=== PATIENT | female | born 1950 | race Caucasian/White ===

== ENCOUNTER 2017-12-20 07:23 | Inpatient (IN) | payer MEDICARE ==
[~2017-12-20] VITALS: Ht 162.6 cm; Wt 84.0 kg
[2017-12-20] VITALS (17 sets, daily range): BP systolic 100–132; BP diastolic 51–83
[2017-12-20 07:59] LABS: BASOPHILS % (AUTO) 0.3 % (0-1); EOSINOPHILS % (AUTO) 0 % (0-6); HEMATOCRIT 40.8 % (35.0-45.0); HEMOGLOBIN 14.1 g/dl (12.0-16.0); LYMPHOCYTES # (AUTO) 0.7 X10'3 (1.1-4.8); LYMPHOCYTES % (AUTO) 7.3 % (21-51); MEAN CORPUSCULAR HEMOGLOBIN 29.6 PG (27.0-31.0); MEAN CORPUSCULAR HGB CONC 34.5 % (33.0-36.5); MEAN CORPUSCULAR VOLUME 85.9 FL (78-98); MEAN PLATELET VOLUME 9.6 FL (7.4-10.4); MONOCYTES # (AUTO) 0.4 X10'3 (0-0.9); MONOCYTES % (AUTO) 4.8 % (2-12); NEUTROPHILS % (AUTO) 87.6 % (42-75); PLATELET COUNT 242 X10'3 (140-440); RED BLOOD COUNT 4.75 X10'6 (4.20-5.60); RED CELL DISTRIBUTION WIDTH 13.2 % (11.5-14.5); WHITE BLOOD COUNT 9.1 X10'3 (4.5-11.0)
[2017-12-20] MEDS ORDERED: normal saline 1000ML IV soln IVB ONE (08:00)
[2017-12-20] MEDS ORDERED: MORPHINE 2MG in 2ml NS syringe IV PRN (08:10)
[2017-12-20] MEDS ORDERED: morphine 4 MG/ML inj SYRINge IV PRN (08:10)
[2017-12-20] MEDS ORDERED: proCHLORperazine 10 MG/2 ml inj IV ONE (08:10)
[2017-12-20 08:14] LABS: ALANINE AMINOTRANSFERASE 24 U/L (12-78); ALBUMIN/GLOBULIN RATIO 0.7 (1.1-1.5); ALKALINE PHOSPHATASE 107 IU/L (46-116); ANION GAP 10 (8-16); ASPARTATE AMINO TRANSFERASE 21 U/L (10-37); BILIRUBIN,TOTAL 0.7 MG/DL (0.1-1.0); BLOOD UREA NITROGEN 14 MG/DL (7-18); BUN/CREATININE RATIO 16.9 (6.6-38.0); CHLORIDE 99 MMOL/L (99-107); CREATININE 0.83 MG/DL (0.40-0.90); GLUCOSE 354 MG/DL (70-104); LIPASE < 50 U/L (73-393); MAGNESIUM 1.4 MG/DL (1.5-2.4); POTASSIUM 4.2 MMOL/L (3.5-5.1); SODIUM 134 MMOL/L (135-145); TOTAL CARBON DIOXIDE 25.4 MMOL/L (24-32); TOTAL PROTEIN 7.6 G/DL (6.4-8.2); eGFR 69 ML/MIN
[2017-12-20] MEDS ORDERED: NO HOME MEDS (09:32)
[2017-12-20] MEDS ORDERED: aspirin 81mg tab.chew PO ONE (09:50)
[2017-12-20] MEDS ORDERED: heparin 10,000 units/1 ML INJ IV ONE (09:50)
[2017-12-20] MEDS ORDERED: potassium Cl 20 mEq SR tablet PO PRN ×2 (10:45)
[2017-12-20] MEDS ORDERED: ondansetron/PF 4mg/2ml inj IV PRN (10:45)
[2017-12-20] MEDS ORDERED: magnesium hydroxide 30ml (MOM) UD suspension PO PRN (10:45)
[2017-12-20] MEDS ORDERED: magnesium Cl slow-release 64mg tablet PO PRN (10:45)
[2017-12-20] MEDS ORDERED: mag hydrox/Alum hydrox/simeth 30ml oral suspension PO PRN (10:45)
[2017-12-20] MEDS ORDERED: acetaminophen 325mg tablet PO PRN (10:45)
[2017-12-20] MEDS ORDERED: potassium Cl 40MEQ/NS 500ml 500 ML IV PRN ×2 (10:45)
[2017-12-20] MEDS ORDERED: magnesium 2GM in 50ml NS 50 ML IV PRN (10:45)
[2017-12-20] MEDS ORDERED: bisacodyl 10mg suppository rectal RC PRN (10:45)
[2017-12-20] MEDS ORDERED: magnesium 4gm in 100ml NS 100 ML IV PRN (10:45)
[2017-12-20] MEDS ORDERED: metoprolol tartrate 25mg tablet PO SCH ×2 (10:50→20:00)
[2017-12-20] MEDS ORDERED: nitroGLYCERIN 0.4mg SUBLingual tab SL PRN (10:50)
[2017-12-20] MEDS ORDERED: heparin 10,000 units/1 ML INJ IV PRN ×2 (10:50→15:00)
[2017-12-20] MEDS ORDERED: MESSAGE TO PHARMACY PO ONE ×2 (11:00→21:30)
[2017-12-20] MEDS ORDERED: glucagon, human recombinant 1mg kit SUBCUT PRN (11:00)
[2017-12-20] MEDS ORDERED: dextrose 50%-water 50ml dispensing syringe IV PRN ×2 (11:00)
[2017-12-20] MEDS ORDERED: dextrose ORAL solution 15 GM/59 ML bottle PO PRN ×2 (11:00)
[2017-12-20 11:13] LABS: INR 1.1 INR; PARTIAL THROMBOPLASTIN TIME 24 SECONDS (22-32); PROTHROMBIN TIME 11.4 SECONDS (9.0-12.0)
[2017-12-20 11:19] LABS: CLARITY,URINE TURBID (Clear); COLOR,URINE YELLOW (Yellow); GLUCOSE, URINE >=1000 mg/dl (Neg); KETONES,URINE >=80 mg/dl (Neg); LEUKOCYTE ESTERASE ,URINE NEGATIVE (Neg); NITRITES, URINE NEGATIVE (Neg); OCCULT BLOOD,URINE NEGATIVE (Neg); PH,URINE 5.5 (4.8-8.0); PROTEIN,URINE NEGATIVE (Neg); UA COLLECTION TYPE CLN CATCH MIDSTREAM
[2017-12-20] MEDS ORDERED: LIDOcaine 1%/PF (10mg/ml) 5ml vial ONE (11:43)
[2017-12-20 12:04] LABS: CHOLESTEROL 232 MG/DL (0-200); HDL CHOLESTEROL 58 MG/DL (35-60); LDL CHOLESTEROL 151 MG/DL (50-100); TRIGLYCERIDES 105 MG/DL (20-135)
[2017-12-20 12:07] LABS: BACTERIA,URINE 2+ /HPF (Neg); RBC,URINE NONE SEEN /HPF (0-2); SQUAMOUS EPITHELIAL CELL,UR MODERATE /LPF (FEW)
[2017-12-20 12:08] LABS: YEAST FEW /HPF (NEGATIVE)
[2017-12-20 13:01] LABS: BFSOURCE LEFT PLEURAL FLD; PLEURAL FLUID PH 7.491 (7.63-7.65)
[2017-12-20] MEDS: sodium chloride 0.45% 1,000 ML IV SCH (13:40)
[2017-12-20 13:41] LABS: GLUCOSE,BODY FLUID 368 MG/DL; LDH,BODY FLUID 82 U/L
[2017-12-20 13:49] LABS: TOTAL PROTEIN,BODY FLUID < 2.0 G/DL
[2017-12-20 14:24] LABS: BFAPPEAR CLOUDY
[2017-12-20] MEDS: furosemide 20 MG/2 ML vial IV SCH ×2 (14:24→19:44)
[2017-12-20 14:25] LABS: BFCOLOR YELLOW
[2017-12-20 14:26] LABS: BF MESOTHELIAL CELLS MODERATE; BF RBC COUNT 548 /CU MM; BF WBC COUNT 98 /CU MM (0-1000); BFVOLUME 60 ML; EOSINOPHILS,BODY FLUID 2 %; LYMPHOCYTES,BODY FLUID 54 %; MONOCYTES,BODY FLUID 12 %; NEUTROPHILS,BODY FLUID 32 %
[2017-12-20] MEDS: atorvastatin 20mg tablet PO SCH (14:34)
[2017-12-20] MEDS: CefTRIAXone/D5W-Rocephin 1gm 50 ML IV SCH (14:35)
[2017-12-20] MEDS: albuterol 2.5 MG/3 ML nebule NEB SCH ×3 (16:04→23:00)
[2017-12-20] MEDS ORDERED: LIDOcaine 1% 30ml preserv. free vial ONE (16:54)
[2017-12-20] MEDS ORDERED: iohexol 350MG/ML 100ml bottle IV ONE (16:54)
[2017-12-20] MEDS ORDERED: midazolam 2 mg/2 ml injection ONE (17:24)
[2017-12-20] MEDS ORDERED: iohexol 350 MG/ML 50ML vial IV ONE (17:36)
[2017-12-20] MEDS: docusate sod 100mg capsule PO SCH (19:44)
[2017-12-20] MEDS ORDERED: metoprolol tartrate 12.5mg (1/2 tablet) PO SCH (21:20)
[2017-12-20] MEDS ORDERED: insulin glargine (Lantus) pen - multi-dose SQ SCH (21:43)
[2017-12-20] MEDS ORDERED: albuterol 2.5 MG/3 ML nebule NEB PRN (23:40)
[2017-12-21] VITALS (10 sets, daily range): BP systolic 96–118; BP diastolic 59–74
[2017-12-21] MEDS: sodium chloride 0.45% 1,000 ML IV SCH ×2 (02:00→15:21)
[2017-12-21 03:01] LABS: BASOPHILS % (AUTO) 0.3 % (0-1); EOSINOPHILS # (AUTO) 0.1 X10'3 (0-0.9); HEMATOCRIT 36.1 % (35.0-45.0); HEMOGLOBIN 12.6 g/dl (12.0-16.0); LYMPHOCYTES # (AUTO) 0.7 X10'3 (1.1-4.8); LYMPHOCYTES % (AUTO) 10.8 % (21-51); MEAN CORPUSCULAR HEMOGLOBIN 29.8 PG (27.0-31.0); MEAN CORPUSCULAR HGB CONC 34.9 % (33.0-36.5); MEAN CORPUSCULAR VOLUME 85.3 FL (78-98); MEAN PLATELET VOLUME 9.3 FL (7.4-10.4); MONOCYTES # (AUTO) 0.5 X10'3 (0-0.9); MONOCYTES % (AUTO) 8.8 % (2-12); NEUTROPHILS # (AUTO) 4.8 X10'3 (1.8-7.7); NEUTROPHILS % (AUTO) 79.1 % (42-75); PLATELET COUNT 195 X10'3 (140-440); RED BLOOD COUNT 4.23 X10'6 (4.20-5.60); RED CELL DISTRIBUTION WIDTH 13.3 % (11.5-14.5); WHITE BLOOD COUNT 6.1 X10'3 (4.5-11.0)
[2017-12-21 03:15] LABS: ALANINE AMINOTRANSFERASE 21 U/L (12-78); ALBUMIN 2.4 G/DL (3.4-5.0); ALBUMIN/GLOBULIN RATIO 0.6 (1.1-1.5); ALKALINE PHOSPHATASE 90 IU/L (46-116); ANION GAP 8 (8-16); ASPARTATE AMINO TRANSFERASE 21 U/L (10-37); BILIRUBIN,TOTAL 0.5 MG/DL (0.1-1.0); BLOOD UREA NITROGEN 19 MG/DL (7-18); BUN/CREATININE RATIO 21.1 (6.6-38.0); CALCIUM 8.4 MG/DL (8.5-10.1); CHLORIDE 98 MMOL/L (99-107); MAGNESIUM 2.4 MG/DL (1.5-2.4); POTASSIUM 4.4 MMOL/L (3.5-5.1); SODIUM 132 MMOL/L (135-145); TOTAL CARBON DIOXIDE 26.1 MMOL/L (24-32); TOTAL PROTEIN 6.4 G/DL (6.4-8.2); eGFR 63 ML/MIN
[2017-12-21 03:17] LABS: GLUCOSE 469 MG/DL (70-104)
[2017-12-21] MEDS ORDERED: insulin Lispro (HumaLOG) vial - multi-dose SQ SCH (03:35)
[2017-12-21] MEDS: docusate sod 100mg capsule PO SCH ×2 (07:25→20:06)
[2017-12-21] MEDS: furosemide 20 MG/2 ML vial IV SCH ×2 (07:25→20:07)
[2017-12-21] MEDS: atorvastatin 20mg tablet PO SCH (07:25)
[2017-12-21] MEDS: CefTRIAXone/D5W-Rocephin 1gm 50 ML IV SCH (07:25)
[2017-12-21] MEDS: carVEDilol 3.125mg tablet PO SCH ×2 (07:33→20:06)
[2017-12-21] MEDS: K and/or MAG REPLACEMENT MC SCH (07:36)
[2017-12-21] MEDS ORDERED: aspirin 325mg tablet PO SCH ×2 (08:30)
[2017-12-21] MEDS: insulin Lispro (HumaLOG) vial - multi-dose SQ SCH ×2 (13:39→19:03)
[2017-12-21] MEDS: lactobacillus rhamnosus 10,000 MMU CELLS/CAPSULE PO SCH (20:06)
[2017-12-21] MEDS: lisinopril 2.5mg tablet PO SCH (20:07)
[2017-12-21] MEDS: insulin glargine (Lantus) pen - multi-dose SQ SCH (20:55)
[2017-12-22 03:00] VITALS: BP 92/63
[2017-12-22] MEDS: sodium chloride 0.45% 1,000 ML IV SCH (05:11)
[2017-12-22 05:42] LABS: ALANINE AMINOTRANSFERASE 23 U/L (12-78); ALBUMIN 2.3 G/DL (3.4-5.0); ALBUMIN/GLOBULIN RATIO 0.7 (1.1-1.5); ALKALINE PHOSPHATASE 88 IU/L (46-116); ANION GAP 6 (8-16); ASPARTATE AMINO TRANSFERASE 24 U/L (10-37); BILIRUBIN,TOTAL 0.3 MG/DL (0.1-1.0); BLOOD UREA NITROGEN 25 MG/DL (7-18); BUN/CREATININE RATIO 30.9 (6.6-38.0); CALCIUM 8.4 MG/DL (8.5-10.1); CHLORIDE 101 MMOL/L (99-107); CREATININE 0.81 MG/DL (0.40-0.90); GLUCOSE 173 MG/DL (70-104); MAGNESIUM 1.7 MG/DL (1.5-2.4); POTASSIUM 3.6 MMOL/L (3.5-5.1); SODIUM 137 MMOL/L (135-145); TOTAL CARBON DIOXIDE 30.4 MMOL/L (24-32); TOTAL PROTEIN 5.8 G/DL (6.4-8.2); eGFR 71 ML/MIN
[2017-12-22 05:44] LABS: BASOPHILS % (AUTO) 0.4 % (0-1); EOSINOPHILS # (AUTO) 0.1 X10'3 (0-0.9); EOSINOPHILS % (AUTO) 1.6 % (0-6); HEMATOCRIT 32.9 % (35.0-45.0); HEMOGLOBIN 11.2 g/dl (12.0-16.0); LYMPHOCYTES % (AUTO) 25.2 % (21-51); MEAN CORPUSCULAR HEMOGLOBIN 29.3 PG (27.0-31.0); MEAN CORPUSCULAR VOLUME 86.2 FL (78-98); MEAN PLATELET VOLUME 9.4 FL (7.4-10.4); MONOCYTES # (AUTO) 1.3 X10'3 (0-0.9); MONOCYTES % (AUTO) 16.5 % (2-12); NEUTROPHILS # (AUTO) 4.5 X10'3 (1.8-7.7); NEUTROPHILS % (AUTO) 56.3 % (42-75); PLATELET COUNT 176 X10'3 (140-440); RED BLOOD COUNT 3.82 X10'6 (4.20-5.60); RED CELL DISTRIBUTION WIDTH 13.2 % (11.5-14.5); WHITE BLOOD COUNT 7.9 X10'3 (4.5-11.0)
[2017-12-22 06:00] VITALS: BP 99/60
[2017-12-22] MEDS: atorvastatin 20mg tablet PO SCH (07:51)
[2017-12-22] MEDS: lactobacillus rhamnosus 10,000 MMU CELLS/CAPSULE PO SCH ×2 (07:51→20:29)
[2017-12-22] MEDS: docusate sod 100mg capsule PO SCH ×2 (07:51→20:29)
[2017-12-22] MEDS: CefTRIAXone/D5W-Rocephin 1gm 50 ML IV SCH (07:51)
[2017-12-22] MEDS: furosemide 20 MG/2 ML vial IV SCH (07:52)
[2017-12-22] MEDS: carVEDilol 3.125mg tablet PO SCH ×2 (07:53→20:29)
[2017-12-22] MEDS: enoxaparin 40mg/0.4ml syringe SUBCUT SCH (07:54)
[2017-12-22] MEDS: insulin Lispro (HumaLOG) vial - multi-dose SQ SCH ×3 (07:59→19:06)
[2017-12-22] MEDS: K and/or MAG REPLACEMENT MC SCH (08:00)
[2017-12-22] MEDS: aspirin 81mg tablet.DR PO SCH (09:51)
[2017-12-22 11:00] VITALS: BP 92/47
[2017-12-22 15:00] VITALS: BP 94/55
[2017-12-22] MEDS: levoFLOXACIN 500mg tablet PO SCH (16:09)
[2017-12-22 19:00] VITALS: BP 106/67
[2017-12-22] MEDS: lisinopril 2.5mg tablet PO SCH (20:29)
[2017-12-22] MEDS: insulin glargine (Lantus) pen - multi-dose SQ SCH (20:37)
[2017-12-22 23:00] VITALS: BP 94/53
[2017-12-23 03:00] VITALS: BP 99/64
[2017-12-23 06:00] VITALS: BP 95/54
[2017-12-23 06:30] LABS: ALANINE AMINOTRANSFERASE 22 U/L (12-78); ALBUMIN 2.2 G/DL (3.4-5.0); ALBUMIN/GLOBULIN RATIO 0.6 (1.1-1.5); ALKALINE PHOSPHATASE 86 IU/L (46-116); ANION GAP 8 (8-16); ASPARTATE AMINO TRANSFERASE 21 U/L (10-37); BILIRUBIN,TOTAL 0.4 MG/DL (0.1-1.0); BLOOD UREA NITROGEN 27 MG/DL (7-18); BUN/CREATININE RATIO 32.9 (6.6-38.0); CALCIUM 8.5 MG/DL (8.5-10.1); CHLORIDE 103 MMOL/L (99-107); CREATININE 0.82 MG/DL (0.40-0.90); GLUCOSE 133 MG/DL (70-104); MAGNESIUM 1.7 MG/DL (1.5-2.4); POTASSIUM 3.8 MMOL/L (3.5-5.1); SODIUM 139 MMOL/L (135-145); TOTAL CARBON DIOXIDE 28.3 MMOL/L (24-32); TOTAL PROTEIN 5.9 G/DL (6.4-8.2); eGFR 70 ML/MIN
[2017-12-23] MEDS: K and/or MAG REPLACEMENT MC SCH (06:54)
[2017-12-23] MEDS: carVEDilol 3.125mg tablet PO SCH (07:33)
[2017-12-23] MEDS: lactobacillus rhamnosus 10,000 MMU CELLS/CAPSULE PO SCH (07:33)
[2017-12-23] MEDS: docusate sod 100mg capsule PO SCH (07:33)
[2017-12-23] MEDS: atorvastatin 20mg tablet PO SCH (07:33)
[2017-12-23] MEDS: aspirin 81mg tablet.DR PO SCH (07:33)
[2017-12-23] MEDS: enoxaparin 40mg/0.4ml syringe SUBCUT SCH (07:35)
[2017-12-23] MEDS ORDERED: furosemide 20 MG/2 ML vial IV SCH (08:00)
[2017-12-23] MEDS: insulin Lispro (HumaLOG) vial - multi-dose SQ SCH ×2 (08:25→13:27)
[2017-12-23] MEDS: levoFLOXACIN 500mg tablet PO SCH (10:53)
[2017-12-23] MEDS ORDERED: COR3.125T PO (14:15)
[2017-12-23] MEDS ORDERED: LISI2.5T2 PO (14:15)
[2017-12-23] MEDS ORDERED: ATOR20TA66 PO (14:15)
[2017-12-23] MEDS ORDERED: LANTUS SQ (14:15)
[2017-12-23] MEDS ORDERED: LACT1CAP26 PO (14:15)
[2017-12-23] MEDS ORDERED: ASPI-1071 PO (14:15)
[2017-12-23] MEDS ORDERED: INSU100V11 SQ (14:21)
[2017-12-23 15:00] VITALS: BP 94/61
[2017-12-23] MEDS ORDERED: LEVO500T89 PO (15:01)
== END 2017-12-23 16:30 | disposition home or self-care (01) | DRG 280 ==
LOC: ER 07:24 → ED HOLD 10:45 → PCU 3S 14:55
PROVIDERS: ADMIT Internal Medicine; ATTEND Internal Medicine
PROC: 4A023N7 Measurement of Cardiac Sampling and Pressure, Left Heart, Percutaneous Approach (ICD-10-PCS; principal; 2017-12-20)
PROC: B2111ZZ Fluoroscopy of Multiple Coronary Arteries using Low Osmolar Contrast (ICD-10-PCS; 2017-12-20)
PROC: 0W9B3ZZ Drainage of Left Pleural Cavity, Percutaneous Approach (ICD-10-PCS; 2017-12-20)
PROC: B2151ZZ Fluoroscopy of Left Heart using Low Osmolar Contrast (ICD-10-PCS; 2017-12-20)
PROC: B3121ZZ Fluoroscopy of Left Subclavian Artery using Low Osmolar Contrast (ICD-10-PCS; 2017-12-20)
DX: I21.4 Non-ST elevation (NSTEMI) myocardial infarction (principal); I50.21 Acute systolic (congestive) heart failure; J90 Pleural effusion, not elsewhere classified; E11.9 Type 2 diabetes mellitus without complications; I51.81 Takotsubo syndrome; N39.0 Urinary tract infection, site not specified; I25.10 Atherosclerotic heart disease of native coronary artery without angina pectoris; B96.20 Unspecified Escherichia coli [E. coli] as the cause of diseases classified elsewhere; J45.909 Unspecified asthma, uncomplicated; N20.0 Calculus of kidney; Z66 Do not resuscitate; Z88.5 Allergy status to narcotic agent; Z79.82 Long term (current) use of aspirin; Z82.49 Family history of ischemic heart disease and other diseases of the circulatory system; Z83.3 Family history of diabetes mellitus
CPT/HCPCS: 32555; 36415; 71045; 74176; 80053; 80061; 81001; 82945; 82948; 83036; 83615; 83690; 83735; 83880; 83986; 84157; 84484; 85025; 85610; 85730; 87070; 87077; 87088; 87186; 88108; 89051; 93005; 93306; 93458; 94640; 94760; 96361; 96374; 96375; 97161; 97530; 99152; 99153; 99291; A6257; C1769; J0696; J0780; J1644; J1650; J1815; J1940; J2001; J2250; J2270; J3475; J3490; J7030; Q9967

== ENCOUNTER 2018-04-03 19:42 | Inpatient (IN) | payer MEDICARE ==
[~2018-04-03] VITALS: Ht 160 cm; Wt 82.8 kg
[~2018-04-03 19:42] MED LIST: ASPI-1071 PO; ATOR20TA66 PO; COR3.125T PO; INSU100V11 SQ; LACT1CAP26 PO; LANTUS SQ; LEVO500T89 PO; LISI2.5T2 PO; NO HOME MEDS
[2018-04-03 20:12] LABS: BASOPHILS % (AUTO) 0.2 % (0-1); EOSINOPHILS # (AUTO) 0.3 X10'3 (0-0.9); EOSINOPHILS % (AUTO) 2.8 % (0-6); HEMATOCRIT 39.4 % (35.0-45.0); HEMOGLOBIN 13.1 g/dl (12.0-16.0); LYMPHOCYTES # (AUTO) 2.4 X10'3 (1.1-4.8); LYMPHOCYTES % (AUTO) 27.2 % (21-51); MEAN CORPUSCULAR HEMOGLOBIN 28.3 PG (27.0-31.0); MEAN CORPUSCULAR HGB CONC 33.4 % (33.0-36.5); MEAN CORPUSCULAR VOLUME 84.7 FL (78-98); MEAN PLATELET VOLUME 10.3 FL (7.4-10.4); MONOCYTES # (AUTO) 0.5 X10'3 (0-0.9); MONOCYTES % (AUTO) 5.2 % (2-12); NEUTROPHILS # (AUTO) 5.8 X10'3 (1.8-7.7); NEUTROPHILS % (AUTO) 64.6 % (42-75); PLATELET COUNT 200 X10'3 (140-440); RED BLOOD COUNT 4.65 X10'6 (4.20-5.60); RED CELL DISTRIBUTION WIDTH 15.9 % (11.5-14.5)
[2018-04-03 20:22] LABS: INR 1.1 INR; PARTIAL THROMBOPLASTIN TIME 26 SECONDS (22-32); PROTHROMBIN TIME 11.7 SECONDS (9.0-12.0)
[2018-04-03 20:27] LABS: ALANINE AMINOTRANSFERASE 18 U/L (12-78); ALBUMIN 3.4 G/DL (3.4-5.0); ALBUMIN/GLOBULIN RATIO 0.8 (1.1-1.5); ALKALINE PHOSPHATASE 102 IU/L (46-116); ANION GAP 6 (8-16); ASPARTATE AMINO TRANSFERASE 15 U/L (10-37); BILIRUBIN,TOTAL 0.7 MG/DL (0.1-1.0); BLOOD UREA NITROGEN 19 MG/DL (7-18); BUN/CREATININE RATIO 23.2 (6.6-38.0); CALCIUM 9.6 MG/DL (8.5-10.1); CHLORIDE 104 MMOL/L (99-107); CREATININE 0.82 MG/DL (0.40-0.90); GLUCOSE 146 MG/DL (70-104); POTASSIUM 3.9 MMOL/L (3.5-5.1); SODIUM 141 MMOL/L (135-145); TOTAL PROTEIN 7.9 G/DL (6.4-8.2); eGFR 70 ML/MIN
[2018-04-03] MEDS ORDERED: nitroGLYCERIN 0.2mg/hour patch TD ONE (20:40)
[2018-04-03] MEDS ORDERED: furosemide 10 MG/1 ML 10ml inj IV ONE (20:40)
[2018-04-03] MEDS ORDERED: dextrose 50%-water 50ml dispensing syringe IV PRN ×2 (22:05)
[2018-04-03] MEDS ORDERED: ipratropium/albuterol 3ml nebule NEB PRN (22:05)
[2018-04-03] MEDS ORDERED: mag hydrox/Alum hydrox/simeth 30ml oral suspension PO PRN (22:05)
[2018-04-03] MEDS ORDERED: magnesium 4gm in 100ml NS 100 ML IV PRN (22:05)
[2018-04-03] MEDS ORDERED: potassium Cl 20 mEq SR tablet PO PRN ×2 (22:05)
[2018-04-03] MEDS ORDERED: docusate sod 100mg capsule PO PRN (22:05)
[2018-04-03] MEDS ORDERED: MESSAGE TO PHARMACY PO ONE (22:05)
[2018-04-03] MEDS ORDERED: ondansetron/PF 4mg/2ml inj IV PRN (22:05)
[2018-04-03] MEDS ORDERED: glucagon, human recombinant 1mg kit SUBCUT PRN (22:05)
[2018-04-03] MEDS ORDERED: insulin Lispro (HumaLOG) vial - multi-dose SQ SCH (22:05)
[2018-04-03] MEDS ORDERED: acetaminophen 325mg tablet PO PRN (22:05)
[2018-04-03] MEDS ORDERED: dextrose ORAL solution 15 GM/59 ML bottle PO PRN ×2 (22:05)
[2018-04-03] MEDS ORDERED: potassium Cl 40MEQ/NS 500ml 500 ML IV PRN ×2 (22:05)
[2018-04-03] MEDS ORDERED: furosemide 40mg/4ml inj IV SCH (22:20)
[2018-04-03 22:47] LABS: HEMOGLOBIN A1C 6.6 % (4.5-6.2)
[2018-04-03] MEDS: heparin, porcine 5000 units/ml vial SQ SCH (23:53)
[2018-04-04] VITALS: BP 147/86
[2018-04-04 02:41] LABS: BASOPHILS # (AUTO) 0.1 X10'3 (0-0.2); BASOPHILS % (AUTO) 1.3 % (0-1); EOSINOPHILS # (AUTO) 0.2 X10'3 (0-0.9); EOSINOPHILS % (AUTO) 2.2 % (0-6); HEMATOCRIT 33.8 % (35.0-45.0); HEMOGLOBIN 11.3 g/dl (12.0-16.0); LYMPHOCYTES % (AUTO) 22.3 % (21-51); MEAN CORPUSCULAR HEMOGLOBIN 28.3 PG (27.0-31.0); MEAN CORPUSCULAR HGB CONC 33.4 % (33.0-36.5); MEAN CORPUSCULAR VOLUME 84.6 FL (78-98); MEAN PLATELET VOLUME 10.4 FL (7.4-10.4); MONOCYTES # (AUTO) 0.6 X10'3 (0-0.9); MONOCYTES % (AUTO) 6.7 % (2-12); NEUTROPHILS # (AUTO) 5.9 X10'3 (1.8-7.7); NEUTROPHILS % (AUTO) 67.5 % (42-75); PLATELET COUNT 166 X10'3 (140-440); RED BLOOD COUNT 3.99 X10'6 (4.20-5.60); RED CELL DISTRIBUTION WIDTH 16.2 % (11.5-14.5); WHITE BLOOD COUNT 8.8 X10'3 (4.5-11.0)
[2018-04-04 03:06] LABS: ALANINE AMINOTRANSFERASE 21 U/L (12-78); ALBUMIN 2.8 G/DL (3.4-5.0); ALBUMIN/GLOBULIN RATIO 0.7 (1.1-1.5); ALKALINE PHOSPHATASE 74 IU/L (46-116); ANION GAP 5 (8-16); ASPARTATE AMINO TRANSFERASE 14 U/L (10-37); BILIRUBIN,TOTAL 0.6 MG/DL (0.1-1.0); BLOOD UREA NITROGEN 18 MG/DL (7-18); BUN/CREATININE RATIO 23.1 (6.6-38.0); CALCIUM 8.5 MG/DL (8.5-10.1); CHLORIDE 104 MMOL/L (99-107); CHOLESTEROL 128 MG/DL (0-200); CREATININE 0.78 MG/DL (0.40-0.90); GLUCOSE 196 MG/DL (70-104); HDL CHOLESTEROL 42 MG/DL (35-60); LDL CHOLESTEROL 78 MG/DL (50-100); MAGNESIUM 1.2 MG/DL (1.5-2.4); POTASSIUM 3.8 MMOL/L (3.5-5.1); SODIUM 140 MMOL/L (135-145); TOTAL CARBON DIOXIDE 31.4 MMOL/L (24-32); TOTAL PROTEIN 6.6 G/DL (6.4-8.2); TRIGLYCERIDES 49 MG/DL (20-135); eGFR 74 ML/MIN
[2018-04-04 07:02] VITALS: BP 121/70
[2018-04-04] MEDS: heparin, porcine 5000 units/ml vial SQ SCH ×2 (07:40→15:00)
[2018-04-04] MEDS: carVEDilol 3.125mg tablet PO SCH ×3 (07:42→19:37)
[2018-04-04] MEDS: furosemide 40mg/4ml inj IV SCH ×2 (07:46→19:38)
[2018-04-04] MEDS: K and/or MAG REPLACEMENT MC SCH (07:47)
[2018-04-04] MEDS ORDERED: lisinopril 10 MG tablet PO SCH (08:00)
[2018-04-04] MEDS: clopidogrel 75mg tablet PO SCH (10:10)
[2018-04-04] MEDS: aspirin 81mg tab.chew PO SCH (10:10)
[2018-04-04] MEDS ORDERED: lisinopril 2.5mg tablet PO SCH (10:26)
[2018-04-04] MEDS: magnesium 1gm/100ml D5W IVPB 100 ML IV PRN ×2 (10:41→12:34)
[2018-04-04] MEDS: atorvastatin 20mg tablet PO SCH (10:41)
[2018-04-04 11:18] VITALS: BP 122/74
[2018-04-04] MEDS ORDERED: LIDOcaine 0.5% (5mg/ml) 50ml vial ONE (14:20)
[2018-04-04 14:30] VITALS: BP 120/74
[2018-04-04 14:49] VITALS: BP 118/69
[2018-04-04 15:07] LABS: PLEURAL FLUID PH 7.537 (7.63-7.65)
[2018-04-04 15:08] LABS: BFSOURCE LEFT PLEURAL FLD
[2018-04-04 15:39] LABS: LDH,BODY FLUID 60 U/L; LIPASE,BODY FLUID 17 U/L
[2018-04-04 20:00] VITALS: BP 120/78
[2018-04-04] MEDS ORDERED: insulin glargine (Lantus) pen - multi-dose SQ SCH (21:00)
[2018-04-05] VITALS: BP 123/76
[2018-04-05] MEDS: heparin, porcine 5000 units/ml vial SQ SCH ×2 (00:02→08:52)
[2018-04-05 04:59] LABS: BASOPHILS % (AUTO) 0.6 % (0-1); EOSINOPHILS # (AUTO) 0.3 X10'3 (0-0.9); HEMATOCRIT 34.1 % (35.0-45.0); HEMOGLOBIN 11.6 g/dl (12.0-16.0); LYMPHOCYTES # (AUTO) 2.2 X10'3 (1.1-4.8); LYMPHOCYTES % (AUTO) 29.6 % (21-51); MEAN CORPUSCULAR HEMOGLOBIN 28.6 PG (27.0-31.0); MEAN CORPUSCULAR HGB CONC 33.9 % (33.0-36.5); MEAN CORPUSCULAR VOLUME 84.4 FL (78-98); MEAN PLATELET VOLUME 10.3 FL (7.4-10.4); MONOCYTES # (AUTO) 0.6 X10'3 (0-0.9); MONOCYTES % (AUTO) 8.5 % (2-12); NEUTROPHILS # (AUTO) 4.3 X10'3 (1.8-7.7); NEUTROPHILS % (AUTO) 57.3 % (42-75); PLATELET COUNT 173 X10'3 (140-440); RED BLOOD COUNT 4.04 X10'6 (4.20-5.60); RED CELL DISTRIBUTION WIDTH 15.6 % (11.5-14.5); WHITE BLOOD COUNT 7.5 X10'3 (4.5-11.0)
[2018-04-05 05:23] LABS: ALANINE AMINOTRANSFERASE 16 U/L (12-78); ALBUMIN 2.7 G/DL (3.4-5.0); ALBUMIN/GLOBULIN RATIO 0.7 (1.1-1.5); ALKALINE PHOSPHATASE 79 IU/L (46-116); ANION GAP 5 (8-16); ASPARTATE AMINO TRANSFERASE 17 U/L (10-37); BILIRUBIN,TOTAL 0.7 MG/DL (0.1-1.0); BLOOD UREA NITROGEN 16 MG/DL (7-18); BUN/CREATININE RATIO 18.8 (6.6-38.0); CALCIUM 8.7 MG/DL (8.5-10.1); CHLORIDE 102 MMOL/L (99-107); CREATININE 0.85 MG/DL (0.40-0.90); GLUCOSE 177 MG/DL (70-104); MAGNESIUM 1.5 MG/DL (1.5-2.4); POTASSIUM 3.2 MMOL/L (3.5-5.1); SODIUM 141 MMOL/L (135-145); TOTAL CARBON DIOXIDE 34.5 MMOL/L (24-32); TOTAL PROTEIN 6.4 G/DL (6.4-8.2); eGFR 67 ML/MIN
[2018-04-05 07:19] VITALS: BP 121/71
[2018-04-05] MEDS: K and/or MAG REPLACEMENT MC SCH (08:00)
[2018-04-05] MEDS ORDERED: lisinopril 2.5mg tablet PO SCH (08:00)
[2018-04-05] MEDS: atorvastatin 20mg tablet PO SCH (08:49)
[2018-04-05] MEDS: aspirin 81mg tab.chew PO SCH (08:49)
[2018-04-05] MEDS: clopidogrel 75mg tablet PO SCH (08:50)
[2018-04-05] MEDS: carVEDilol 3.125mg tablet PO SCH (08:51)
[2018-04-05] MEDS: furosemide 40mg/4ml inj IV SCH (08:51)
[2018-04-05] MEDS ORDERED: POTA20TA19 PO (10:56)
[2018-04-05] MEDS ORDERED: CLOP75TA15 PO (10:56)
[2018-04-05] MEDS ORDERED: FURO-149 PO (10:56)
[2018-04-05 12:30] VITALS: BP 106/58
== END 2018-04-05 12:05 | disposition home or self-care (01) | DRG 280 ==
LOC: ER 19:43 → ED HOLD 22:05 → EDBEDREQ 22:36 → SUR 3N 23:04
PROVIDERS: ADMIT Family Medicine; ATTEND Family Medicine
PROC: 0W9B3ZZ Drainage of Left Pleural Cavity, Percutaneous Approach (ICD-10-PCS; principal; 2018-04-04)
PROC: 0W993ZZ Drainage of Right Pleural Cavity, Percutaneous Approach (ICD-10-PCS; 2018-04-04)
DX: I11.0 Hypertensive heart disease with heart failure (principal); I21.A1 Myocardial infarction type 2; J96.00 Acute respiratory failure, unspecified whether with hypoxia or hypercapnia; J90 Pleural effusion, not elsewhere classified; I50.23 Acute on chronic systolic (congestive) heart failure; E78.5 Hyperlipidemia, unspecified; I25.10 Atherosclerotic heart disease of native coronary artery without angina pectoris; J45.909 Unspecified asthma, uncomplicated; E11.9 Type 2 diabetes mellitus without complications; I25.2 Old myocardial infarction; Z98.51 Tubal ligation status; Z88.5 Allergy status to narcotic agent; Z79.02 Long term (current) use of antithrombotics/antiplatelets; Z79.899 Other long term (current) drug therapy; Z79.4 Long term (current) use of insulin; Z79.82 Long term (current) use of aspirin; Z82.49 Family history of ischemic heart disease and other diseases of the circulatory system; Z83.3 Family history of diabetes mellitus
CPT/HCPCS: 32555; 36415; 71045; 80053; 80061; 82948; 83036; 83615; 83690; 83735; 83880; 83986; 84484; 85025; 85610; 85730; 87070; 87075; 93005; 94760; A4649; A6196; J1644; J1815; J1940; J2001; J3475

== ENCOUNTER 2025-05-06 00:27 | Emergency (ER) | payer MEDICARE ==
[~2025-05-06] VITALS: Ht 162.6 cm; Wt 76.7 kg
[~2025-05-06 00:27] MED LIST changes: +CLOP75TA15 PO; +FURO-149 PO; -LEVO500T89 PO; +LISI2.5T14 PO; -LISI2.5T2 PO; -NO HOME MEDS
[2025-05-06 01:43] LABS: MEAN PLATELET VOLUME 9.7 FL (7.4-10.4); RED CELL DISTRIBUTION WIDTH 14.1 % (11.5-14.5)
[2025-05-06] MEDS: ondansetron/PF 4mg/2ml inj IV ONE (01:44)
[2025-05-06] MEDS: HYDROmorphone inj. 0.5 MG/0.5 ML DISP.SYRIN IV ONE (01:45)
--- NOTE | 2025-05-06 01:47 | RADIOLOGY REPORT ---
Exam: CT CT ABDOMEN PELVIS History: flank pain Comparison Study: None Technique: Multidetector spiral CT of the abdomen was performed from lung bases to pubic symphysis. I maging was performed without IV contrast. Axial, coronal and sagittal multiplanar reformats were obta ined from the axial data set by the technologist. Radiation Dose : 1. Abdomen/Pelvis: CTDIvol 26.41 mGy, DLP 1129.05 mGy*cm. Findings: Evaluation of solid organs is limited due to lack of intravenous contrast use. Lung Bases: No acute or significant lung base finding. Normal heart size. No pleural or pericardial effusion. Cardiac pacing leads. Liver: The liver is normal in size. No focal lesions. Interposition of segments of bowel between the anterior liver margin and the right hemidiaphragm. Gallbladder and Biliary Tree: Cholelithiasis and moderate gallbladder distention. Spleen: Unremarkable Pancreas: The pancreas is grossly normal in appearance. Adrenal Glands: Unremarkable Kidneys: Kidneys are grossly normal without calculi or hydronephrosis. Left interpolar renal cortical cyst measures 1.4 cm. Bladder: Grossly unremarkable for degree of distention. Bowel: The stomach is grossly normal in appearance. Retained colorectal stool. Small bowel and colon are otherwise normal in caliber and distribution. The appendix is normal. Ascites: Absent Lymphadenopathy: No mesenteric, retroperitoneal or periportal lymphadenopathy. Abdominal Wall and Mesentery: Unremarkable. Vasculature: The visualized abdominal aorta is moderately tortuous in its course and otherwise normal in size and caliber. Atherosclerotic vascular calcifications. Evaluation of abdominal and pelvic ves sels is limited due to lack of intravenous contrast. Pelvic Organs: Unremarkable Musculoskeletal: No aggressive focal bony lesions, acute fractures or dislocation. IMPRESSION: 1. Cholelithiasis and moderate gallbladder distention. 2. Retained colorectal stool. 3. No renal calculi or hydronephrosis. Radiation optimization: All CT scans at this facility use at least one of these dose optimization amanda hniques: automated exposure control mA and/or kV adjustment per patient size (includes targeted exam s where dose is matched to clinical indication) or iterative reconstruction.
[2025-05-06] MEDS: ketorolac trometh 30MG/ML vial 30 MG/ML VIAL IV ONE (01:48)
[2025-05-06] MEDS: normal saline 1000ml 1,000 ML IV ONE (01:53)
[2025-05-06 01:56] LABS: CREATININE 1.24 MG/DL (0.40-0.90); TOTAL CARBON DIOXIDE 29.8 MMOL/L (24-32); eCRCL 35 ML/MIN; eGFR 43 ML/MIN
[2025-05-06 03:37] LABS: LEUKOCYTE ESTERASE ,URINE TRACE (Neg); NITRITES, URINE NEGATIVE (Neg); OCCULT BLOOD,URINE MODERATE (Neg)
[2025-05-06 03:38] LABS: UA COLLECTION TYPE CLN CATCH MIDSTREAM
[2025-05-06 03:43] LABS: SQUAMOUS EPITHELIAL CELL,UR MODERATE /LPF (FEW); WBC CLUMPS,URINE MODERATE /HPF (NEGATIVE)
[2025-05-06] MEDS: CefTRIAXone/D5W-Rocephin 1gm 50 ML IV ONE (04:23)
[2025-05-06] MEDS ORDERED: CEPH-585 PO (05:00)
--- NOTE | 2025-05-06 05:00 | Physician Documentation ---
History of Present Illness Chief Complaint: Flank Pain Stated Complaint: POSS KIDNEY STONE Time Seen by MD: 00:47 Primary Medical Doctor: Dr. Ramon HPI L flank pain. Recently diagnosed with 9mm kidney stone on L side and is concerned that it has not passed. Denies dysuria, fevers. +nausea, vomiting. Medication Reconciliation Allergies: Coded Allergies: codeine (Verified Allergy, Unknown, 12/20/17) Scheduled Aspirin (Ecotrin*), 81 MG PO DAILY@0830 Atorvastatin Calcium (Atorvastatin Calcium), 20 MG PO DAILY Carvedilol (Carvedilol), 3.125 MG PO BID Clopidogrel Bisulfate (Plavix), 75 MG PO DAILY Furosemide (Lasix), 40 MG PO DAILY Insulin Glargine,Hum.rec.anlog* (Lantus*), 20 UNIT SQ HS Insulin Lispro (Humalog), 0 UNITS SQ HMO Lactobacillus Rhamnosus (Culturelle), 10,000 MMU PO Q12H Lisinopril (Lisinopril), 2.5 MG PO HS Past Medical History Past Medical History: Myocardial Infarction Past Surgical History: Patient History: FH: coronary artery disease MOTHER FH: type 2 diabetes mellitus MOTHER Smoking Status: Never smoker Drug Use: none Lives with: Spouse Lives In: Home Occupation: retired Review of Systems All Other Systems at this time: Reviewed and Negative Physical Exam Vital Signs: RN Vital Signs have been reviewed: Yes, Temperature: 97.7, Source: Oral, Heart Rate: 64, Respiratory Rate: 16, BP: 110/58, Pulse Oximetry: 93, Weight: 76.730 Oxygen Flow Rate: 0 Physical Exam HEENT: PERRL, moist oral mucosa, EOMI Pulmonary: No respiratory distress GI: nondistended, soft, nontender, no guarding, no rebound MSK: no deformity Skin: w/d/i, no rash Neuro: alert, nonfocal Psych: normal affect Progress Results/Orders Results/Orders Orders - MALIK INGRAM MD Ct Abdomen Pelvis (05/06/25 01:00) Cult Urine + [facility] Ct (05/06/25 03:43) Completed Orders - MALIK INGRAM MD Cbc/Diff (05/06/25 00:49) CMP (05/06/25 00:49) Ct Abdomen Pelvis (05/06/25 01:00) Ondansetron Inj. (Zofran 4mg/2ml Vial) (05/06/25 01:30) Ketorolac Trometh 30mg/Ml Vial (Toradol (05/06/25 01:30) Hydromorphone 0.5 Mg/0.5 Ml/Pf (Dilaudid (05/06/25 01:40) Normal Saline 1000ml (0.9% Sodium Chlori (05/06/25 01:45) Ua W/Microscopic, Cult If Ind (05/06/25 03:23) Ceftriaxone/E4y-Hwlbptxs 1gm (Rocephin 1 (05/06/25 04:15) Medications Received in ER Medications (Trade) Dose Ordered Sig/Carlos Route PRN Reason Start Time Stop Time Status Last Admin Dose Admin (Zofran 4mg/2ml vial) 4 mg ONCE ONCE IV 05/06/25 01:30 05/06/25 01:31 DC 05/06/25 01:44 4 MG (Toradol inj. 30mg/ml) 15 mg ONCE ONCE IV 05/06/25 01:30 05/06/25 01:34 DC 05/06/25 01:48 15 MG (Dilaudid inj.) 0.5 mg ONCE ONCE IV 05/06/25 01:40 05/06/25 01:41 DC 05/06/25 01:45 0.5 MG Sodium Chloride 1,000 ml @ 1,000 mls/hr ONCE ONCE IV 05/06/25 01:45 05/06/25 02:44 DC 05/06/25 01:53 1,000 MLS/HR Ceftriaxone Sodium 50 ml @ 100 mls/hr ONCE ONCE IV 05/06/25 04:15 05/06/25 04:44 DC 05/06/25 04:23 100 MLS/HR Vital Signs 05/06/25 05/06/25 05/06/25 05/06/25 00:31 01:00 01:23 01:45 Temp 97.7 Pulse 73 65 Resp 14 16 17 17 B/P (MAP) 135/93 136/68 (90) Pulse Ox 99 97 O2 Flow Rate 0 05/06/25 05/06/25 05/06/25 05/06/25 01:48 02:00 02:26 02:26 Pulse 64 Resp 16 14 16 16 B/P (MAP) 129/63 (85) Pulse Ox 99 05/06/25 05/06/25 03:00 04:00 Pulse 64 64 Resp 16 16 B/P (MAP) 125/66 (85) 110/58 (75) Pulse Ox 100 93 Laboratory Tests Test 05/06/25 01:16 05/06/25 03:23 White Blood Count 7.4 Red Blood Count 4.03 L Hemoglobin 12.7 Hematocrit 37.7 Mean Corpuscular Volume 93.4 Mean Corpuscular Hemoglobin 31.4 H Mean Corpuscular Hemoglobin Concent 33.6 Red Cell Distribution Width 14.1 Platelet Count 169 Mean Platelet Volume 9.7 Neutrophils (%) (Auto) 69.0 Lymphocytes (%) (Auto) 22.5 Monocytes (%) (Auto) 7.4 Eosinophils (%) (Auto) 0.5 Basophils (%) (Auto) 0.6 Neutrophils # (Auto) 5.1 Lymphocytes # (Auto) 1.7 Monocytes # (Auto) 0.6 Eosinophils # (Auto) 0.0 Basophils # (Auto) 0.0 CBC Comment Sodium Level 138 Potassium Level 4.4 Chloride Level 101 Carbon Dioxide Level 29.8 Anion Gap 7 L Blood Urea Nitrogen 34 H Creatinine 1.24 H Estimated GFR/1.73 m2 43 BUN/Creatinine Ratio 27.4 H Glucose Level 174 H Calcium Level 9.6 Total Bilirubin 0.5 Aspartate Amino Transf (AST/SGOT) 17 Alanine Aminotransferase (ALT/SGPT) 15 Alkaline Phosphatase 61 Total Protein 7.1 Albumin 3.8 Globulin 3.3 Albumin/Globulin Ratio 1.2 Chemistry Comments Urine Specimen Description Cln catch midstream Urine Color Yellow Urine Clarity Slightly cloudy Urine pH 6.0 Urine Specific Oriental 1.010 Urine Protein Negative Urine Glucose (UA) >=1000 H Urine Ketones 15 H Urine Occult Blood Moderate H Urine Nitrite Negative Urine Bilirubin Negative Urine Urobilinogen 0.2 Urine Leukocyte Esterase Trace H Urine RBC 50-100 Urine WBC Tntc H Urine WBC Clumps Moderate Urine Squamous Epithelial Cells Moderate Urine Bacteria 4+ Urine Culture Indicated Indicated Volume Urine Centrifuged 10 ml Urine Comment Microbiology Date/Time Source Procedure Growth Status 05/06/25 03:43 Urine Clean Catch Midstream Urine Culture - Preliminary Culture received. Resulted Departure Disposition: 01 HOME / SELF CARE / HOMELESS Impression: Primary Impression: Acute pyelonephritis Condition: Stable Discharge Instructions: Pyelonephritis, Adult Referrals: NO PRIMARY CARE PROVIDER (PCP) Prescriptions Cephalexin*Monohydrate* (Keflex*) 500 Mg Capsule 1 CAP PO QID, #28 CAP Prov: MALIK INGRAM MD 05/06/25 Education Educated: Patient, Family Educated regarding: diagnosis, treatment, prognosis, need for follow up Signature Scribe Signature: . Attestation: . MALIK INGRAM MD May 06, 2025 05:00
[2025-05-06 05:10] VITALS: BP 113/59; PULSE 64; RESP 16; TEMP 97.7; O2SAT 98
[2025-05-07] MEDS ORDERED: ONDA-245 PO (05:25)
[2025-05-07] MEDS ORDERED: TRAM50TA2 PO (05:25)
== END 2025-05-06 05:13 | disposition home or self-care (01) ==
LOC: ER 00:27
DX: N10 Acute pyelonephritis (principal); I25.2 Old myocardial infarction; Z88.5 Allergy status to narcotic agent; Z88.8 Allergy status to other drugs, medicaments and biological substances; Z79.82 Long term (current) use of aspirin
CPT/HCPCS: 36415; 74176; 80053; 81001; 85025; 87088; 87186; 96361; 96365; 96375; 99285; J0696; J1171; J1885; J2405; J7030; 87077

== ENCOUNTER 2025-05-07 03:58 | Emergency (ER) | payer MEDICARE ==
[~2025-05-07] VITALS: Ht 162.6 cm; Wt 76.7 kg
[~2025-05-07 03:58] MED LIST changes: +CEPH-585 PO
[2025-05-07 04:05] VITALS: TEMP 98.2
--- NOTE | 2025-05-07 04:52 | Physician Documentation ---
History of Present Illness ~ Chief Complaint: Flank Pain Stated Complaint: LEFT SIDE PAIN Time Seen by MD: 04:46 Primary Medical Doctor: Dr. Ramon HPI Patient presents to the emergency room with right-sided flank pain onset yesterday. She was seen here yesterday where CT scan was performed which was negative however workup was consistent with pyelonephritis. Antibiotics were initiated she reports compliance. Tonight she started having significant pain with associated vomiting therefore came in to be evaluated. Patient was able to take some Tylenol a proximally 1 hour prior to arrival. She has had nothing for nausea. Medication Reconciliation Allergies: Coded Allergies: codeine (Verified Allergy, Unknown, 12/20/17) Scheduled Aspirin (Ecotrin*), 81 MG PO DAILY@0830 Atorvastatin Calcium (Atorvastatin Calcium), 20 MG PO DAILY Carvedilol (Carvedilol), 3.125 MG PO BID Cephalexin*Monohydrate* (Keflex*), 1 CAP PO QID Clopidogrel Bisulfate (Plavix), 75 MG PO DAILY Furosemide (Lasix), 40 MG PO DAILY Insulin Glargine,Hum.rec.anlog* (Lantus*), 20 UNIT SQ HS Insulin Lispro (Humalog), 0 UNITS SQ HMO Lactobacillus Rhamnosus (Culturelle), 10,000 MMU PO Q12H Lisinopril (Lisinopril), 2.5 MG PO HS Ondansetron 8mg ODT (Ondansetron Odt), 1 TAB PO Q6H Scheduled PRN Tramadol HCl (Tramadol HCl), 1 TAB PO TID PRN PRN for pain Past Medical History Past Medical History: Myocardial Infarction Past Surgical History: Patient History: FH: coronary artery disease MOTHER FH: type 2 diabetes mellitus MOTHER Drug Use: none Lives with: Spouse Lives In: Home Occupation: retired Review of Systems ROS All review of systems negative except as per HPI Physical Exam Vital Signs: Temperature: 98.2, Heart Rate: 60, Respiratory Rate: 16, BP: 120/58, Pulse Oximetry: 98, Weight: 76.730 Oxygen Flow Rate: 0 Physical Exam General: Patient is awake, alert, oriented x4 in no acute distress Head: Normocephalic and atraumatic. Eyes: Conjunctival normal. EOMI. PERRL. ENT: Mucous membranes moist. Neck: Supple, trachea is midline. Chest: Clear to auscultation bilaterally without rales, rhonchi, or wheezes. There is no accessory muscle use or retractions. Cardiac: RRR without murmurs, gallops, or rubs. Abd: Soft, nondistended, nontender, with normoactive bowel sounds. No guarding, rebound, or rigidity. Back: Right-sided CVA tenderness Progress Results/Orders Results/Orders Completed Orders - MELVIN RAHMAN MD Cbc/Diff (05/07/25 04:11) CMP (05/07/25 04:11) Procalcitonin (05/07/25 04:51) Normal Saline 1000ml (0.9% Sodium Chlori (05/07/25 05:00) Ondansetron Inj. (Zofran 4mg/2ml Vial) (05/07/25 05:00) Ketorolac Trometh 15mg/Ml Vial (Toradol (05/07/25 05:00) Hs Troponin I W Calculations (05/07/25 04:58) Fentanyl/Pf (Fentanyl 0.05 Mg/Ml Syringe (05/07/25 05:45) Tramadol Tablet (Ultram Tablet) (05/07/25 05:45) Vital Signs 05/07/25 05/07/25 05/07/25 05/07/25 04:05 04:38 04:40 05:11 Temp 98.2 Pulse 67 60 Resp 16 16 16 B/P (MAP) 123/64 120/58 (78) Pulse Ox 99 98 O2 Flow Rate 0 05/07/25 05/07/25 05/07/25 05:46 05:51 05:56 Pulse 60 60 Resp 16 16 16 B/P (MAP) 129/55 (79) 124/54 Pulse Ox 93 95 O2 Flow Rate 0 Laboratory Tests Test 05/07/25 05:06 White Blood Count 6.6 Red Blood Count 3.95 L Hemoglobin 12.4 Hematocrit 37.0 Mean Corpuscular Volume 93.6 Mean Corpuscular Hemoglobin 31.3 H Mean Corpuscular Hemoglobin Concent 33.4 Red Cell Distribution Width 14.0 Platelet Count 146 Mean Platelet Volume 10.0 Neutrophils (%) (Auto) 66.9 Lymphocytes (%) (Auto) 23.7 Monocytes (%) (Auto) 6.6 Eosinophils (%) (Auto) 2.3 Basophils (%) (Auto) 0.5 Neutrophils # (Auto) 4.4 Lymphocytes # (Auto) 1.6 Monocytes # (Auto) 0.4 Eosinophils # (Auto) 0.2 Basophils # (Auto) 0.0 CBC Comment Sodium Level 139 Potassium Level 4.3 Chloride Level 101 Carbon Dioxide Level 30.3 Anion Gap 8 Blood Urea Nitrogen 32 H Creatinine 1.35 H Estimated GFR/1.73 m2 39 BUN/Creatinine Ratio 23.7 H Glucose Level 145 H Calcium Level 9.6 Total Bilirubin 0.4 Aspartate Amino Transf (AST/SGOT) 18 Alanine Aminotransferase (ALT/SGPT) 17 Alkaline Phosphatase 57 Troponin I High Sensitivity 48 Total Protein 6.8 Albumin 3.6 Globulin 3.2 Albumin/Globulin Ratio 1.1 Procalcitonin < 0.05 Chemistry Comments Medical Decision Making Findings Patient presents to the emergency room for evaluation of right-sided flank pain. Differentials include but are not limited to kidney stone, pyelonephritis, mus culoskeletal pain, aortic pathology therefore emergent labs ordered. Departure Disposition: HOME / SELF CARE / HOMELESS Impression: Primary Impression: Acute pyelonephritis Condition: Stable Discharge Instructions: Pyelonephritis, Adult Referrals: NO PRIMARY CARE PROVIDER (PCP) Prescriptions Tramadol HCl (Tramadol HCl) 50 Mg Tablet 1 TAB PO TID PRN PRN for pain, #10 TAB Prov: MELVIN RAHMAN MD 05/07/25 Ondansetron 8mg ODT (Ondansetron Odt) 8 Mg Tab.rapdis 1 TAB PO Q6H for nausea/vomiting for 3 Days, #12 TAB 0 Refills Prov: MELVIN RAHMAN MD 05/07/25 Education Educated: Patient Educated regarding: diagnosis, treatment, need for follow up Signature Scribe Signature: No scribe Attestation: The note accurately reflects work and decisions made by me.Melvin Rahman MD 05/07/25 05:25 MELVIN RAHMAN MD May 07, 2025 04:52
[2025-05-07] MEDS: normal saline 1000ml 1,000 ML IV ONE (05:10)
[2025-05-07] MEDS: ondansetron/PF 4mg/2ml inj IV ONE (05:11)
[2025-05-07] MEDS: ketorolac trometh 15mg/ml vial 15 MG/ML ML IV ONE (05:11)
[2025-05-07] MEDS ORDERED: ONDA-245 PO (05:25)
[2025-05-07] MEDS ORDERED: TRAM50TA2 PO (05:25)
[2025-05-07 05:37] LABS: MEAN PLATELET VOLUME 10.0 FL (7.4-10.4); RED CELL DISTRIBUTION WIDTH 14.0 % (11.5-14.5)
[2025-05-07] MEDS: fentaNYL/PF 50MCG/1 ML 2ML syringe IV ONE (05:46)
[2025-05-07 05:56] VITALS: BP 124/54; PULSE 60; RESP 16; O2SAT 95
[2025-05-07 05:58] LABS: CREATININE 1.35 MG/DL (0.40-0.90); TOTAL CARBON DIOXIDE 30.3 MMOL/L (24-32); eCRCL 33 ML/MIN; eGFR 39 ML/MIN
== END 2025-05-07 05:59 | disposition home or self-care (01) ==
LOC: ER 03:58
DX: N10 Acute pyelonephritis (principal); I25.2 Old myocardial infarction; Z88.6 Allergy status to analgesic agent; Z79.82 Long term (current) use of aspirin
CPT/HCPCS: 36415; 80053; 84145; 84484; 85025; 96361; 96374; 96375; 99284; J1885; J2405; J3010; J7030